=== PATIENT | male | born 1985 | race Two or more races ===

== ENCOUNTER 2019-07-28 13:54 | Emergency (ER) | payer OTHER ==
[2019-07-28 14:03] VITALS: BP 101/62; PULSE 91; TEMP 98.2; BMI 24.1
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
== END 2019-07-28 15:20 | disposition home or self-care (01) ==
LOC: JERFT 13:54
DX: J32.9 Chronic sinusitis, unspecified (principal); S41.151A Open bite of right upper arm, initial encounter; Y04.1XXA Assault by human bite, initial encounter; Y93.89 Activity, other specified; Y92.89 Other specified places as the place of occurrence of the external cause
CPT/HCPCS: 99281-25